=== PATIENT | male | born 1985 | race Caucasian/White ===

== ENCOUNTER 2022-11-17 21:22 | Emergency (ER) | payer OTHER, SELFPAY ==
[2022-11-17] VITALS (10 sets, daily range): BP systolic 122–172; BP diastolic 81–105; PULSE 65–73; RESP 16–36; TEMP 36.6; O2SAT 93–99
--- NOTE | 2022-11-17 21:25 | ED.GENADULT ---
HPI - General Adult General Chief complaint: Neuro Symptoms/Deficit Stated complaint: SOB Time Seen by Provider: 11/17/22 21:23 Source: patient and other (Girlfriend) Mode of arrival: Ambulatory Limitations: no limitations History of Present Illness HPI narrative: Patient is a 37-year-old male who arrives to the emergency department with his girlfriend for evaluation of left-sided facial twitching. Information is provided by both the patient by writing and also his girlfriend. Patient does have history of anxiety. He was having some anxiety earlier in the day. He did take his Valium in his propranolol. He also has a history of ADD. Should be on Adderall but has not taken this medication for the past week as there has been some issues with getting it refilled by his prescriber. He was eating some soup earlier in the afternoon when he started to notice that he was having some twitching in the left side of his face and also some problems coordinating swallowing. He was not having any problems breathing. Has the evening went on the twitching seemed to get worse. His girlfriend did state that it did seem to be periodic where there were times when it was worse than others. He was not having any twitching anywhere else in his body. He denied any vision changes. Has never had anything like this in the past. Patient expressed that there was some question about an electrolyte abnormality. He did have 1 ?sip? of a pre workout drink before the symptoms started as well. Patient has not tried anything for the symptoms prior to arrival. Related Data Home Medications Medication Instructions Recorded Confirmed dextroamphetamine-amphetamine 10 10 mg PO BID 11/17/22 11/17/22 mg tablet diazepam 5 mg tablet (Valium) 5 mg PO BID PRN Anxiety 11/17/22 11/17/22 propranolol 10 mg tablet 20 mg PO DAILY 11/17/22 11/17/22 Allergies Allergy/AdvReac Type Severity Reaction Status Date / Time No Known Drug Allergies Allergy Verified 11/17/22 21:29 Review of Systems Review of Systems ROS Unobtainable: All systems reviewed & are unremarkable except as noted in HPI and below Patient History Social History Smoking Status: Never smoker Exam Initial Vital Signs Initial Vital Signs: Vital Signs Blood Pressure 162/105 H 04/08/23 21:23 Const General: cooperative and comfortable HENVA Head: normal to inspection and normocephalic Mouth: moist mucous membranes Teeth and gingiva: fair dentition Eyes Pupils: PERRL EOM: EOM intact bilaterally Resp Effort & Inspection: normal respiratory effort Auscultation: clear to auscultation bilaterally Cardio Rate: regular rate Rhythm: regular rhythm GI Inspection: normal to inspection and non-distended Skin General: no rashes or lesions noted Neuro Sensory Exam: no sensory deficits noted Coordination: kurtjh-xm-rcbn test normal and gqsp-zl-ryhp test normal Other: Patient did have twitching that did encompass the left side of his face that included his forehead. Patient did seem to have problems closing his left eye all the way. He did have minimal movement to the left side of his mouth. He was drooling out of the left side of his mouth. There were periods of time specifically with the patient was writing things down in order to tell me something that the twitching did seem to improve or lessen. Was not painful to the patient. His extraocular muscles were intact. He had no twitching in any of his upper or lower extremities. His efadqm-to-cxol and tdyx-dj-qkwa were unremarkable. He was having some dysarthria mostly because he had quite a bit of saliva in his mouth. He was able to swallow but does report some difficulty with doing so but was more because of twitching per his description. Extrem General: normal to inspection and capillary refill normal Psych Appearance: grossly normal and well kempt Course Orders Ordered: ED Orders 11/17/22 21:27 Complete Blood Count AUTO DIFF Stat Comprehensive Metabolic Panel Stat Ethanol (ETOH) Stat Lipase Stat Magnesium Stat Phosphorous Stat Thyroid Stimulating Hormone Stat 11/17/22 22:00 Urine Drug Screen, Rapid Stat 11/17/22 22:21 CT angio head and neck Stat CT head/brain wo con Stat Discontinued Medications Sodium Chloride (Normal Saline 0.9%) 1,000 mls @ 125 mls/hr IV CONT ARIEL Last Admin: 11/17/22 21:31 Dose: 125 mls/hr Documented By: CAMRON Lorazepam (Lorazepam 2 Mg/Ml Inj) 1 mg IV NOW ONE Stop: 11/17/22 21:24 Last Admin: 11/17/22 21:30 Dose: 1 mg Documented By: CAMRON Lorazepam (Lorazepam 2 Mg/Ml Inj) 1 mg IV NOW ONE Stop: 11/17/22 22:31 Last Admin: 11/17/22 22:51 Dose: 1 mg Documented By: THOM Vital Signs Vital signs: Vital Signs - 8 hr 11/17/22 21:25 11/17/22 21:23 11/17/22 21:24 Temperature 98 F Pulse Rate 72 71 Respiratory Rate 22 28 H Blood Pressure 162/105 H 162/105 H Pulse Oximetry 99 98 Oxygen Delivery Method Room Air 11/17/22 21:30 11/17/22 21:32 11/17/22 21:32 Temperature Pulse Rate 73 70 Respiratory Rate 27 H 31 H Blood Pressure 172/85 H Pulse Oximetry Oxygen Delivery Method 11/17/22 22:00 11/17/22 22:00 11/17/22 22:40 Temperature Pulse Rate 68 65 Respiratory Rate 36 H Blood Pressure 137/85 Pulse Oximetry 98 Oxygen Delivery Method 11/17/22 22:42 11/17/22 22:42 11/17/22 23:00 Temperature Pulse Rate 66 Respiratory Rate 21 Blood Pressure 135/90 122/82 Pulse Oximetry 98 Oxygen Delivery Method 11/17/22 23:00 11/17/22 23:30 11/17/22 23:30 Temperature Pulse Rate 67 68 Respiratory Rate 19 16 Blood Pressure 133/81 Pulse Oximetry 94 93 Oxygen Delivery Method 11/18/22 00:00 11/18/22 00:00 11/18/22 00:30 Temperature Pulse Rate 67 Respiratory Rate 19 Blood Pressure 117/66 118/67 Pulse Oximetry 94 Oxygen Delivery Method 11/18/22 00:30 11/18/22 01:00 11/18/22 01:00 Temperature Pulse Rate 66 64 Respiratory Rate 19 17 Blood Pressure 123/75 Pulse Oximetry 96 96 Oxygen Delivery Method 11/18/22 01:30 11/18/22 01:30 11/18/22 02:00 Temperature Pulse Rate 65 Respiratory Rate 18 Blood Pressure 121/74 121/69 Pulse Oximetry 96 Oxygen Delivery Method 11/18/22 02:00 11/18/22 02:30 11/18/22 02:30 Temperature Pulse Rate 66 64 Respiratory Rate 18 18 Blood Pressure 118/79 Pulse Oximetry 96 95 Oxygen Delivery Method 11/18/22 03:00 11/18/22 03:00 11/18/22 03:30 Temperature Pulse Rate 64 Respiratory Rate 17 Blood Pressure 122/71 115/67 Pulse Oximetry 95 Oxygen Delivery Method 11/18/22 03:30 11/18/22 04:00 11/18/22 04:00 Temperature Pulse Rate 65 64 Respiratory Rate 17 17 Blood Pressure 129/69 Pulse Oximetry 95 95 Oxygen Delivery Method 11/18/22 04:30 11/18/22 04:31 11/18/22 04:31 Temperature Pulse Rate 87 75 Respiratory Rate 27 H 21 Blood Pressure 127/74 Pulse Oximetry 96 97 Oxygen Delivery Method Medical Decision Making Lab Data Lab results reviewed: Yes I reviewed the patient's lab results. 11/17/22 21:27 11/17/22 21:27 Labs: Lab Results 11/17/22 11/17/22 11/17/22 Range/Units 21:27 21:27 21:27 WBC 11.4 H (4.5-11.0) X10^3/uL RBC 5.38 (4.5-5.9) X10^6/uL Hgb 16.2 (13.5-17.5) g/dL Hct 46.4 (41-53) % MCV 86.3 (80-100) fL MCH 30.0 (26-34) PG MCHC 34.8 (30-36) % RDW 12.7 (11.6-14.8) % Plt Count 204 (150-400) X10^3/uL Neut % (Auto) 69.5 (50-75) % Lymph % (Auto) 22.8 L (25-40) % [place] % (Auto) 6.1 (3-14) % Eos % (Auto) 1.2 L (2-4) % Baso % (Auto) 0.4 (0-2) % Neut # (Auto) 8000 H (2384-4294) /uL Lymph # (Auto) 2600 (0988-0914) /uL [place] # (Auto) 700 (0-900) /uL Eos # (Auto) 100 (0-450) /uL Baso # (Auto) 0 (0-100) /uL Sodium 139 (137-145) mmol/L Potassium 3.9 (3.4-5.1) mmol/L Chloride 101 (98-107) mmol/L Carbon Dioxide 30 (22-32) mmol/L BUN 11 (9-20) mg/dL Creatinine 0.99 (0.66-1.25) mg/dL Estimated GFR > 60 (>60) mL/min BUN/Creatinine Ratio 11.1 (6-22) Glucose 99 (70-100) mg/dL Calcium 9.3 (8.4-10.2) mg/dL Phosphorus 3.4 (2.5-4.5) mg/dL Magnesium 2.1 (1.6-2.3) mg/dL Total Bilirubin 0.5 (0.2-1.3) mg/dL AST 28 (17-59) IU/L ALT 33 (<50) IU/L Alkaline Phosphatase 82 (38-126) U/L Total Protein 7.7 (6.3-8.2) g/dL Albumin 4.5 (3.5-5.0) g/dL Globulin 3.2 (1.7-4.1) g/dL Albumin/Globulin Ratio 1.4 (1.0-2.8) Lipase 376 H (23-300) U/L TSH 2.21 (0.47-4.68) uIU/mL Ethyl Alcohol ( - 10) mg/dL 11/17/22 Range/Units 21:27 WBC (4.5-11.0) X10^3/uL RBC (4.5-5.9) X10^6/uL Hgb (13.5-17.5) g/dL Hct (41-53) % MCV (80-100) fL MCH (26-34) PG MCHC (30-36) % RDW (11.6-14.8) % Plt Count (150-400) X10^3/uL Neut % (Auto) (50-75) % Lymph % (Auto) (25-40) % [place] % (Auto) (3-14) % Eos % (Auto) (2-4) % Baso % (Auto) (0-2) % Neut # (Auto) (6698-8878) /uL Lymph # (Auto) (5065-1680) /uL [place] # (Auto) (0-900) /uL Eos # (Auto) (0-450) /uL Baso # (Auto) (0-100) /uL Sodium (137-145) mmol/L Potassium (3.4-5.1) mmol/L Chloride (98-107) mmol/L Carbon Dioxide (22-32) mmol/L BUN (9-20) mg/dL Creatinine (0.66-1.25) mg/dL Estimated GFR (>60) mL/min BUN/Creatinine Ratio (6-22) Glucose (70-100) mg/dL Calcium (8.4-10.2) mg/dL Phosphorus (2.5-4.5) mg/dL Magnesium (1.6-2.3) mg/dL Total Bilirubin (0.2-1.3) mg/dL AST (17-59) IU/L ALT (<50) IU/L Alkaline Phosphatase (38-126) U/L Total Protein (6.3-8.2) g/dL Albumin (3.5-5.0) g/dL Globulin (1.7-4.1) g/dL Albumin/Globulin Ratio (1.0-2.8) Lipase (23-300) U/L TSH (0.47-4.68) uIU/mL Ethyl Alcohol < 10 ( - 10) mg/dL Imaging Data CT scan - head: Radiologist's Impression: PROCEDURE:? CT HEAD/BRAIN WO CON ? INDICATIONS:? L sided facial twitching ? TECHNIQUE:? Noncontrast 4.5 mm thick angled axial sections acquired from the foramen magnum to the vertex, with coronal and sagittal reformats.? For radiation dose reduction, the following was used:? automated exposure control, adjustment of mA and/or kV according to patient size.? ? COMPARISON:? None. ? FINDINGS:? Image quality:? Excellent.? ? CSF spaces:? Basal cisterns are patent.? No extra-axial fluid collections.? Ventricles are normal in size and shape.? ? Brain:? No midline shift.? No intracranial masses or hemorrhage.? Garcia-white matter interface is normal.? Note is made of an ovoid fluid radiodensity within the deep white matter in the thalamic region on the right, which could represent some form longstanding prior injury in that area versus a congenital dilated perivascular space. ? Skull and face:? Calvarium and visualized facial bones are intact, without suspicious lesions.? ? Sinuses:? Visualized sinuses and mastoids are clear.? ? IMPRESSION:? No acute disease is found.? Ovoid 1.5 cm fluid collection within the deep white matter of the right hemisphere, thalamic area, chronic in appearance and potentially a congenital dilated perivascular space. CTA - brain/neck: Radiologist's Impression: PROCEDURE:? CT ANGIO HEAD AND NECK ? INDICATIONS:? Left-sided facial twitching ? TECHNIQUE:? Pre-contrast 4.5 mm thick sections acquired from the foramen magnum to the vertex.? After the administration of intravenous contrast, 1 mm thick sections acquired from the aortic arch through the [place] of Short.? Post-contrast 4.5 mm thick sections then re-acquired from the foramen magnum to the vertex.? 3-dimensional uqjxnls-hfdgevspo-owkgwkfazo (MIP) and/or volume rendering reformats were acquired of the central intracranial vasculature and neck separately. For radiation dose reduction, the following was used:? automated exposure control, adjustment of mA and/or kV according to patient size.? ? COMPARISON:? [facility], CT, CT HEAD/BRAIN WO CON, 11/17/2022, 22:25. ? FINDINGS:? Image quality:? Excellent.? ? BRAIN:? CSF spaces:? Ventricles are normal in size and shape.? Basal cisterns are patent.? No extra-axial fluid collections.? ? Brain:? No midline shift.? No intracranial bleeds or masses.? Garcia-white matter interface appears intact.? Note is made of a chronic appearing ovoid fluid radiodensity within the deep white matter in the right thalamic region, previously described during head CT report. ? Skull and face:? Calvarium and facial bones appear intact, without suspicious lesions.? Orbits appear normal.? ? Sinuses:? Sinuses and mastoids are clear.? ? HEAD CT ANGIOGRAPHY:? Anterior circulation:? Intracranial internal carotid arteries are normal in size and flow.? The flow within the paired anterior cerebral arteries is normal and symmetric.? The flow within the middle cerebral arteries is normal and symmetric.? The anterior communicating artery is seen.? No aneurysms are seen.? ? Posterior circulation:? Visualized portions of the vertebral arteries demonstrate normal caliber, and join to form a normal appearing basilar artery.? Flow within the posterior cerebral arteries is normal and symmetric.? No aneurysms are seen.? ? NECK CT ANGIOGRAPHY:? Carotid system:? The great vessels demonstrate a conventional anatomy as they arise from the aortic arch.? The origins of the common carotid arteries appear patent.? The common carotid arteries demonstrate normal caliber and courses.? The bifurcation regions are both widely patent.? The internal carotid arteries demonstrate normal calibers and courses.? ? Posterior circulation:? The origins of the vertebral arteries both appear widely patent.? The more superior extracranial portions of both vertebral arteries also demonstrate normal courses and calibers.? They join to form a normal appearing basilar artery.? ? Soft tissues:? Visualized neck soft tissues demonstrate no suspicious abnormalities.? ? Bones:? No suspicious bony lesions.? Visualized cervical spine appears normally aligned.? IMPRESSION:? No sign of vascular abnormality over the cervical and skull base arterial vascular structures. ? Any quantitative measurements of stenosis were performed using NASCET criteria.? MDM Narrative Medical decision making narrative: Unsure the exact etiology of the patient's presenting symptoms. Did consider a focal seizure and this still is a possibility given his presentation. His CT of his head and CTA of his head and neck were unremarkable. Low suspicion that this was a stroke that caused his symptoms. He had no symptoms in his upper or lower extremities. I did consider this was an electrolyte abnormality however his electrolytes were unremarkable. Considered etiologies such as tardive dyskinesia her other EPS type presentations however he is not on a medication that would classically cause TD. Adderall could potentially do this but he is not been on it for the past week. His symptoms would be opposite of what I would expect for a Adderall withdrawal. Also considered anxiety has he fell asleep after 2 doses of Ativan and when he woke up his symptoms had completely resolved. I think that the pre workout that he had is unlikely causing his symptoms today. I did discuss this with him. He could potentially need a follow-up with Neurology. No indication for an MRI currently however if he returns with symptoms again this would not be unreasonable to consider. Even with the symptoms at their apparent maximum severity the patient seemed very calm. He was actually making jokes to his girlfriend at bedside and also joking around with the exam. This did seem to not fit what I would expect for someone who presents with these types of symptoms. Patient was comfortable going home. Will discharge home with return precautions. He expressed understanding and agreement. Discharge Plan Departure Patient Disposition: Home Clinical Impression: Facial twitching Activity Restrictions/Additional Instructions: I do recommend that you contact your primary doctor for follow-up as you very well may need a referral to see a neurologist. You also need to take all of your medications as directed. Return to the emergency department for any new symptoms. Prescriptions: No Action propranolol 10 mg Tablet 20 mg PO DAILY diazepam [Valium] 5 mg Tablet 5 mg PO BID PRN (Reason: Anxiety) dextroamphetamine-amphetamine 10 mg tablet 10 mg PO BID Patient Comments: TAKE ONE TABLET BY MOUTH EVERY MORNING AND TAKE 1 TABLET IN THE EARLY AFTERNOON Stand Alone Forms: Patient Portal/API
[2022-11-17] MEDS: LORazepam 2 MG/ML INJ 1 MG IV ×2 (21:30→22:51)
[2022-11-17] MEDS: SODIUM CHLORIDE 0.9% 1,000 ML 125 ML IV (21:31)
[2022-11-17 21:35] LABS: Add Manual Diff / Slide Review NO; Basophils Absolute Auto 0 /uL (0-100); Basophils Percent Auto 0.4 % (0-2); Eosinophils Absolute Auto 100 /uL (0-450); Eosinophils Percent Auto 1.2 % (2-4); Hematocrit 46.4 % (41-53); Hemoglobin 16.2 g/dL (13.5-17.5); Lymphocytes Absolute Auto 2600 /uL (1100-4500); Lymphocytes Percent Auto 22.8 % (25-40); Mean Corpuscular HGB Conc 34.8 % (30-36); Mean Corpuscular Volume 86.3 fL (80-100); Monocytes Absolute Auto 700 /uL (0-900); Monocytes Percent Auto 6.1 % (3-14); Neutrophils Absolute Auto 8000 /uL (1500-7000); Neutrophils Percent Auto 69.5 % (50-75); Platelet Count 204 X10^3/uL (150-400); Red Blood Cell Count 5.38 X10^6/uL (4.5-5.9); Red Cell Distribution Width 12.7 % (11.6-14.8); White Blood Cell Count 11.4 X10^3/uL (4.5-11.0)
[2022-11-17 21:41] LABS: Ethanol (ETOH) < 10 mg/dL
[2022-11-17 21:44] LABS: Alanine Aminotransferase 33 IU/L (<50); Albumin 4.5 g/dL (3.5-5.0); Albumin Globulin Ratio 1.4 (1.0-2.8); Alkaline Phosphatase 82 U/L (38-126); Aspartate Aminotransferase 28 IU/L (17-59); BUN Creatinine Ratio 11.1 (6-22); Bilirubin Total 0.5 mg/dL (0.2-1.3); Blood Urea Nitrogen 11 mg/dL (9-20); Calcium 9.3 mg/dL (8.4-10.2); Carbon Dioxide 30 mmol/L (22-32); Chloride 101 mmol/L (98-107); Estimated Glomerular Filt Rate > 60 mL/min (>60); Globulin 3.2 g/dL (1.7-4.1); Glucose 99 mg/dL (70-100); HEMOLYSIS < 15 (0-50); Lipase 376 U/L (23-300); Magnesium 2.1 mg/dL (1.6-2.3); Phosphorous 3.4 mg/dL (2.5-4.5); Potassium 3.9 mmol/L (3.4-5.1); Sodium 139 mmol/L (137-145); Total Protein 7.7 g/dL (6.3-8.2)
--- NOTE | 2022-11-17 22:21 | DI.CT.S_ITS ---
PROCEDURE: CT ANGIO HEAD AND NECK INDICATIONS: Left-sided facial twitching TECHNIQUE: Pre-contrast 4.5 mm thick sections acquired from the foramen magnum to the vertex. After the administration of intravenous contrast, 1 mm thick sections acquired from the aortic arch through the [place] of [place]. Post-contrast 4.5 mm thick sections then re-acquired from the foramen magnum to the vertex. 3-dimensional npeyfuk-qmgregctt-biwxusgung (MIP) and/or volume rendering reformats were acquired of the central intracranial vasculature and neck separately. For radiation dose reduction, the following was used: automated exposure control, adjustment of mA and/or kV according to patient size. COMPARISON: [facility], CT, CT HEAD/BRAIN WO CON, 11/17/2022, 22:25. FINDINGS: Image quality: Excellent. BRAIN: CSF spaces: Ventricles are normal in size and shape. Basal cisterns are patent. No extra-axial fluid collections. Brain: No midline shift. No intracranial bleeds or masses. Garcia-white matter interface appears intact. Note is made of a chronic appearing ovoid fluid radiodensity within the deep white matter in the right thalamic region, previously described during head CT report. Skull and face: Calvarium and facial bones appear intact, without suspicious lesions. Orbits appear normal. Sinuses: Sinuses and mastoids are clear. HEAD CT ANGIOGRAPHY: Anterior circulation: Intracranial internal carotid arteries are normal in size and flow. The flow within the paired anterior cerebral arteries is normal and symmetric. The flow within the middle cerebral arteries is normal and symmetric. The anterior communicating artery is seen. No aneurysms are seen. Posterior circulation: Visualized portions of the vertebral arteries demonstrate normal caliber, and join to form a normal appearing basilar artery. Flow within the posterior cerebral arteries is normal and symmetric. No aneurysms are seen. NECK CT ANGIOGRAPHY: Carotid system: The great vessels demonstrate a conventional anatomy as they arise from the aortic arch. The origins of the common carotid arteries appear patent. The common carotid arteries demonstrate normal caliber and courses. The bifurcation regions are both widely patent. The internal carotid arteries demonstrate normal calibers and courses. Posterior circulation: The origins of the vertebral arteries both appear widely patent. The more superior extracranial portions of both vertebral arteries also demonstrate normal courses and calibers. They join to form a normal appearing basilar artery. Soft tissues: Visualized neck soft tissues demonstrate no suspicious abnormalities. Bones: No suspicious bony lesions. Visualized cervical spine appears normally aligned. IMPRESSION: No sign of vascular abnormality over the cervical and skull base arterial vascular structures. Any quantitative measurements of stenosis were performed using NASCET criteria. Dictated by: Matthew Fuentes M.D. on 11/17/2022 at 23:09 Approved by: Matthew Fuentes M.D. on 11/17/2022 at 23:11
--- NOTE | 2022-11-17 22:21 | DI.CT.S_ITS ---
PROCEDURE: CT HEAD/BRAIN WO CON INDICATIONS: L sided facial twitching TECHNIQUE: Noncontrast 4.5 mm thick angled axial sections acquired from the foramen magnum to the vertex, with coronal and sagittal reformats. For radiation dose reduction, the following was used: automated exposure control, adjustment of mA and/or kV according to patient size. COMPARISON: None. FINDINGS: Image quality: Excellent. CSF spaces: Basal cisterns are patent. No extra-axial fluid collections. Ventricles are normal in size and shape. Brain: No midline shift. No intracranial masses or hemorrhage. Garcia-white matter interface is normal. Note is made of an ovoid fluid radiodensity within the deep white matter in the thalamic region on the right, which could represent some form longstanding prior injury in that area versus a congenital dilated perivascular space. Skull and face: Calvarium and visualized facial bones are intact, without suspicious lesions. Sinuses: Visualized sinuses and mastoids are clear. IMPRESSION: No acute disease is found. Ovoid 1.5 cm fluid collection within the deep white matter of the right hemisphere, thalamic area, chronic in appearance and potentially a congenital dilated perivascular space. Dictated by: Matthew Fuentes M.D. on 11/17/2022 at 22:57 Approved by: Matthew Fuentes M.D. on 11/17/2022 at 22:59
[2022-11-17 22:39] LABS: Thyroid Stimulating Hormone 2.21 uIU/mL (0.47-4.68)
[2022-11-18] VITALS (11 sets, daily range): BP systolic 115–129; BP diastolic 66–79; PULSE 64–87; RESP 17–27; O2SAT 94–97
== END 2022-11-18 04:51 | disposition home or self-care (01) ==
PROVIDERS: Emergency Provider Emergency Medicine
DX: G51.4 Facial myokymia (principal)
CPT/HCPCS: 36415; 70450; 70496; 70498; 80053; 80320; 83690; 83735; 84100; 84443; 85025; 96361; 96374; 96376; 99284; J2060; Q9967